=== PATIENT | female | born 1950 | race Hispanic/Latino ===

== ENCOUNTER 2018-11-26 21:26 | Emergency (ER) | payer OTHER, MEDICARE ==
[~2018-11-26 21:26] MED LIST: ALEN70TA10 PO; ATOR10TA69 PO; DULO30CA51 PO; GABA-529 PO; INS7030 SQ; LACT10SO PO; LEVO50TA11 PO; LUBI24CA2 PO
== END 2018-11-26 23:18 | disposition home or self-care (01) ==
LOC: EDH 21:26
DX: S39.012A Strain of muscle, fascia and tendon of lower back, initial encounter (principal); E11.9 Type 2 diabetes mellitus without complications; M81.0 Age-related osteoporosis without current pathological fracture; E07.9 Disorder of thyroid, unspecified; Z88.6 Allergy status to analgesic agent; Z98.890 Other specified postprocedural states; Z90.710 Acquired absence of both cervix and uterus; X50.0XXA Overexertion from strenuous movement or load, initial encounter; Y93.89 Activity, other specified; Y92.89 Other specified places as the place of occurrence of the external cause; Y99.8 Other external cause status
CPT/HCPCS: 72100

== ENCOUNTER 2024-07-11 06:14 | Day surgery (SDC) | payer OTHER, MEDICARE ==
[2024-07-11] VITALS (12 sets, daily range): BP systolic 90–173; BP diastolic 39–65; PULSE 82–94; RESP 16–20; TEMP 97.2–98.1
[~2024-07-11] VITALS: Ht 157.5 cm; Wt 61.2 kg
[~2024-07-11 06:14] MED LIST changes: -ALEN70TA10 PO; +ALEN70TA80 PO; -DULO30CA51 PO; +DULO30CA52 PO; +LACT-441 PO; -LACT10SO PO
[2024-07-11] MEDS ORDERED: ALBU18HF7 IH (07:13)
[2024-07-11] MEDS ORDERED: ERGO500093 PO (07:13)
[2024-07-11] MEDS ORDERED: TIZA4CAP8 PO (07:13)
[2024-07-11] MEDS ORDERED: LISI2.5T13 PO (07:14)
[2024-07-11] MEDS ORDERED: PANT40TA54 PO (07:14)
[2024-07-11] MEDS: 0.9%NACL 1000ML 1,000 ML IV ONE (07:26)
[2024-07-11] MEDS ORDERED: proPOFol 10 MG/ML 20ML VIAL IV ONE (07:36)
[2024-07-11] MEDS ORDERED: LIDOCAINE HCL 1% 20 ML VIAL ONE (07:37)
== END 2024-07-11 08:48 | disposition home or self-care (01) ==
LOC: SUH 06:14 → DAH 06:14 → SUH 08:48
PROVIDERS: ATTEND Internal Medicine Gastroenterology
DX: K74.60 Unspecified cirrhosis of liver (principal); K29.00 Acute gastritis without bleeding; K29.50 Unspecified chronic gastritis without bleeding; I10 Essential (primary) hypertension; E11.9 Type 2 diabetes mellitus without complications; E03.9 Hypothyroidism, unspecified; E66.9 Obesity, unspecified; E78.5 Hyperlipidemia, unspecified; Z90.710 Acquired absence of both cervix and uterus; R94.5 Abnormal results of liver function studies; K59.01 Slow transit constipation; E87.6 Hypokalemia; Z88.6 Allergy status to analgesic agent; Z79.899 Other long term (current) drug therapy
CPT/HCPCS: 43239; 82948 ×2; J7030; J2704; A4620; A4215; J3490